=== PATIENT | male | born 1965 | race Caucasian/White ===

== ENCOUNTER 2022-12-30 00:13 | Inpatient (IN) | payer MEDICAID ==
[~2022-12-30] VITALS: Ht 188 cm; Wt 82.1 kg
[2022-12-30] VITALS (12 sets, daily range): BP systolic 98–123; BP diastolic 42–85
--- NOTE | 2022-12-30 00:18 | NUR ---
TO BED AMBULATORY
--- NOTE | 2022-12-30 00:30 | NUR ---
PATIENT WITH COMPLAINTS OF CHEST PAIN, 18G RIGHT AC AND 20G LEFT AC STARTED ON PATIENT. PLACED ON 2L VIA NC. AT BEDSIDE, CARDIAC ULTRASOUND PERFORMED STARTED LEVOPHED 4MG ON PATIENT @2MCG/MIN
[2022-12-30] MEDS ORDERED: NOREPINEPHRINE 4 MG/4 ML VIAL IV ONE ×2 (00:32→11:35)
[2022-12-30] MEDS ORDERED: NOREPINEPHRINE 4 MG in DEXTROSE 5% 250 ML IV ONE (00:50)
[2022-12-30 00:52] LABS: BASOPHILS % (AUTO) 0.4 % (0.0-2.0); EOSINOPHILS % (AUTO) 0.4 % (0.0-4.0); HEMATOCRIT 37.7 % (36-52); HEMOGLOBIN 12.8 g/dL (12.0-18.0); LYMPHOCYTES # (AUTO) 0.4 K/uL (2.0-11.5); LYMPHOCYTES % (AUTO) 19.5 % (20.5-51.1); MEAN CORPUSCULAR HEMOGLOBIN 31 pg (27-31); MEAN CORPUSCULAR HGB CONC 34 g/dL (33-37); MEAN CORPUSCULAR VOLUME 90.9 fL (80-94); MONOCYTES # (AUTO) 0.1 K/uL (0.8-1.0); MONOCYTES % (AUTO) 5.8 % (1.7-9.3); NEUTROPHILS # (AUTO) 1.7 K/uL (1.8-7.7); NEUTROPHILS % (AUTO) 73.9 % (42.2-75.2); PLATELET COUNT (AUTO) 171 K/uL (140-450); RED BLOOD CELL COUNT(AUTO) 4.15 MIL/uL (4.20-6.10); RED CELL DISTRIBUTION WIDTH 12.2 % (11.6-13.7); WHITE BLOOD COUNT (AUTO) 2.3 K/uL (4.8-10.8)
[2022-12-30 01:07] LABS: ALBUMIN 3.1 g/dL (3.4-5.0); ANION GAP 14.9 (8-16); CARBON DIOXIDE 24.9 mmol/L (21-32); CREATININE 1.8 mg/dL (0.6-1.3); POTASSIUM 4.8 mmol/L (3.5-5.1); TOTAL BILIRUBIN 0.4 mg/dL (0.0-1.0)
[2022-12-30] MEDS ORDERED: NACL 0.9% 2,000 ML IV ONE (01:40)
[2022-12-30] MEDS ORDERED: cefTRIAXone 2,000 MG in DEXTROSE 5% 100 ML IV ONE (01:40)
[2022-12-30] MEDS ORDERED: cefTRIAXone 2,000 MG VIAL ONE (01:43)
--- NOTE | 2022-12-30 01:50 | NUR ---
SPEECH THERAPIST AT BEDSIDE FOR BLOOD CULTURES
--- NOTE | 2022-12-30 03:05 | NUR ---
SWABBED PATIENT FOR RAPID COVID; PENDING ADMIT
[2022-12-30] MEDS ORDERED: NACL 0.9% 1,000 ML IV SCH (03:15)
--- NOTE | 2022-12-30 03:25 | NUR ---
"SPOKE WITH PATIENT'S FRIEND CATY OZUNA WHO DROVE PATIENT TO ER. PROVIDED THE FOLLOWING CONTACT INFORMATION FOR PATIENT'S CHILDREN GABRIELLE GRIFFIN (DTR), [id number] IJEOMA GRIFFIN (SON), [phone] CATY OZUNA (FRIEND), [phone] (CELL) | [phone] (WORK, [employer])"
--- NOTE | 2022-12-30 04:07 | NUR ---
Pt report given to ANALISA ARCE RN. Transfer of care at this time, TO ICU BED 2
--- NOTE | 2022-12-30 05:58 | NUR ---
PATIENT ADMITED TO ICU STABLE VITALS SIGNS IN NORMAL LIMITS COMPLAINING OF PAIN I CALL DOCTOR SHANON TO INFORME IT PATIENT HAVE CHEST PAIN IN THE LEFT INTERSCOTAL SR ON MONITOR
[2022-12-30] MEDS ORDERED: KETOROLAC 15 MG/ML VIAL ONE (06:09)
[2022-12-30] MEDS ORDERED: KETOROLAC 15 MG/ML VIAL IVP SCH (06:10)
--- NOTE | 2022-12-30 06:42 | NUR ---
PATIENT STABLE NOT COMPLAINING OF PAIN VITALS SIGNS IN NORMAL LIMITS SR 71 ON MONITOR
--- NOTE | 2022-12-30 07:15 | NUR ---
Received shift endorsement report from night stocker. Pt. is AAOx 4, verbalize understanding, B/L lung sound crackles upon auscultation. SR, Afebrile. Pt. is moaning and graoning in pain and coughing non-stop. Contacted Dr. Núñez and got orders for pain medication and cough medication. Administered Sidney and cough medication. Cont. on monitoring.
[2022-12-30 07:17] LABS: APPEARANCE,URINE CLEAR (CLEAR); BILIRUBIN,URINE NEGATIVE (NEGATIVE); BLOOD, URINE NEGATIVE (NEGATIVE); COLOR,URINE YELLOW (YELLOW); LEUKOCYTE ESTERASE ,URINE NEGATIVE (NEGATIVE); NITRITE, URINE NEGATIVE (NEGATIVE); UGLUCOSE NEGATIVE (NEGATIVE)
[2022-12-30] MEDS ORDERED: ACETAMINOPHEN 325 MG TAB PO PRN (07:45)
[2022-12-30] MEDS ORDERED: DOCUSATE SODIUM 100 MG GELCAP PO PRN (07:45)
[2022-12-30] MEDS ORDERED: guaiFENesin DM 200/20 MG-10 ML 10 ML UDC PO PRN (07:45)
[2022-12-30] MEDS ORDERED: POTASSIUM CHLORIDE 10 MEQ TABER PO PRN (07:45)
[2022-12-30] MEDS ORDERED: ZOLPIDEM 5 MG TAB PO PRN (07:45)
[2022-12-30] MEDS ORDERED: ONDANSETRON 4 MG/2 ML VIAL IM/IVP PRN (07:45)
--- NOTE | 2022-12-30 08:05 | NUR ---
RECEIVED ON SUPPLEMENTAL OXYGEN AT 3 LPM VIA NC SATURATION 99% TITRATED FIO2 TO 2LPM MIKAYLA/RN NOTIFIED
--- NOTE | 2022-12-30 08:10 | NUR ---
Pt. verbalized pain 2/10 and feeling better at this time.
[2022-12-30] MEDS: NACL 0.9% 1,000 ML IV SCH ×2 (08:11→16:33)
[2022-12-30] MEDS: PANTOPRAZOLE 40 MG TABEC PO SCH (08:15)
[2022-12-30 08:52] LABS: PROTHROMBIN TIME 10.4 secs (10.8-13.4)
[2022-12-30 09:08] LABS: CHOL/HDL RATIO 1.8 (1-4.5); FREE T4 (FREE THYROXINE) 0.92 ng/dL (0.76-1.46); MAGNESIUM 1.7 mg/dL (1.8-2.4); PHOSPHORUS 3.6 mg/dL (2.5-4.9); THYROID STIMULATING HORMONE 1.68 uIU/mL (0.34-3.74)
--- NOTE | 2022-12-30 09:11 | NUR ---
PATIENT HAS BEEN SCREENED AND CATEGORIZED HIGH NUTRITION RISK. PATIENT WILL BE SEEN WITHIN 1-2 DAYS OF ADMISSION. REVIEWED BY NAV WADDELL RD
[2022-12-30] MEDS ORDERED: MAG SULF 2000 MG/WATER PREMIX 50 ML IV SCH (09:23)
--- NOTE | 2022-12-30 10:01 | NUR ---
Contacted Dr. Núñez, made aware Mg 1.7. acknowledged and gave order to administer Mg 2 gm. Order noted and carried out.
--- NOTE | 2022-12-30 10:58 | NUR ---
CLINICAL RESEARCH NURSE CALLED TO BEDSIDE BY MIKAYLA/RN TO ASSESS SOB STATUS; PATIENT PRESENTING WITH INCREASED SOB AT 32 BPM BREATH SOUNDS WHEEZE AND RALES BILATERAL REVIEWED CXR DATED 12/30 AND PMHX REVIEWED FINDINGS WITH RN CLINICAL RESEARCH NURSE TO CONSULT PCP FOR HHN THERAPY ORDERS
[2022-12-30] MEDS ORDERED: ALBUTEROL SULFATE/IPRATROPIU 3 ML SOL IH ONE (10:59)
[2022-12-30] MEDS ORDERED: ALBUTEROL SULFATE/IPRATROPIU 3 ML SOL IH PRN (11:00)
[2022-12-30] MEDS: PROMETH/CODEINE 6.25-10MG/5ML 5 ML UDC PO PRN (11:21)
--- NOTE | 2022-12-30 11:35 | NUR ---
OVERRIDE LEVOPHED 4 MG TO MAKE LEVOPHED DRIP.
[2022-12-30] MEDS ORDERED: HYDROmorphone 1 MG/ML AMP IVP PRN (12:55)
[2022-12-30] MEDS: ALBUTEROL SULFATE/IPRATROPIU 3 ML SOL IH SCH ×2 (13:04→18:57)
[2022-12-30] MEDS: MORPHINE SULFATE 2 MG/ML SYR IVP PRN ×2 (15:00→18:29)
--- NOTE | 2022-12-30 19:30 | NUR ---
ASSUMED CARE OF THIS PATIENT AND ASSESSMENT DONE AND COMPLETED.AWAKE,ALERT AND ORIENTD.AFEBRILE.DENIES ANY PAIN AND DISCOMFORT.ON O2 2L VIA NC WITH O2 SAT AT 97% \.LUNG SOUNDS WITH CRACLES ON BILATERAL LUNG FIEDS.sr ON THE MONITOR.PATIENT IS VOIDING FREELY ON URINAL WITH ADEQUATE AMOUNT OF URINE OUTPUT.ALL PULSES PRENE AND PALPABLE.NO EDEMA NOTED ON ALL EXTREMITIES.ON LEVOPHED DRIP AT 8MCG. IV ON BOTH HANDS BENIGN.WILL CONTINUE TO PROCEED WITH CARE.
[2022-12-31] VITALS (12 sets, daily range): BP systolic 100–122; BP diastolic 61–77
[2022-12-31] MEDS: ALBUTEROL SULFATE/IPRATROPIU 3 ML SOL IH SCH ×4 (00:47→19:20)
[2022-12-31] MEDS: NACL 0.9% 1,000 ML IV SCH ×4 (01:00→16:16)
[2022-12-31] MEDS: NOREPINEPHRINE 4 MG/4 ML VIAL IV ONE ×2 (02:12→03:15)
[2022-12-31] MEDS: NOREPINEPHRINE 4 MG in DEXTROSE 5% 250 ML IV PRN ×3 (03:26→15:24)
[2022-12-31 05:23] LABS: BASOPHILS % (AUTO) 0.3 % (0.0-2.0); EOSINOPHILS # (AUTO) 0.1 K/uL (0-0.4); HEMATOCRIT 35.2 % (36-52); HEMOGLOBIN 11.9 g/dL (12.0-18.0); LYMPHOCYTES # (AUTO) 0.5 K/uL (2.0-11.5); LYMPHOCYTES % (AUTO) 7.6 % (20.5-51.1); MEAN CORPUSCULAR HEMOGLOBIN 31 pg (27-31); MEAN CORPUSCULAR HGB CONC 34 g/dL (33-37); MEAN CORPUSCULAR VOLUME 90.3 fL (80-94); MONOCYTES # (AUTO) 0.2 K/uL (0.8-1.0); MONOCYTES % (AUTO) 3.9 % (1.7-9.3); NEUTROPHILS # (AUTO) 5.2 K/uL (1.8-7.7); NEUTROPHILS % (AUTO) 87.2 % (42.2-75.2); PLATELET COUNT (AUTO) 178 K/uL (140-450); RED BLOOD CELL COUNT(AUTO) 3.89 MIL/uL (4.20-6.10); RED CELL DISTRIBUTION WIDTH 12.6 % (11.6-13.7); WHITE BLOOD COUNT (AUTO) 5.9 K/uL (4.8-10.8)
[2022-12-31 06:39] LABS: ANION GAP 13.2 (8-16); CARBON DIOXIDE 22.6 mmol/L (21-32); POTASSIUM 3.8 mmol/L (3.5-5.1)
--- NOTE | 2022-12-31 07:00 | NUR ---
REPORT GIVEN TO DAY SHIFT RN MIKAYLA FOR CONTINUITY OF CARE.
--- NOTE | 2022-12-31 07:15 | NUR ---
rECEIVED REPORT FROM PAPERHANGER APPRENTICE. PT. IS AA0X4, VERBALIZED UNDERSTANDING. NO C/O PAIN AND ACUTE DISTRESS NOTED AT TH8IS TIME. ON LEVOPHED 8 MCG AND NS AT 125CC/HR. CONTINENT TO B&B. AFEBRILE. VS WNL.
[2022-12-31] MEDS: HYDROcodone/APAP 7.5/325 MG 1 TAB PO PRN (08:00)
[2022-12-31] MEDS: PANTOPRAZOLE 40 MG TABEC PO SCH (08:00)
[2022-12-31] MEDS: PROMETH/CODEINE 6.25-10MG/5ML 5 ML UDC PO PRN (12:06)
--- NOTE | 2022-12-31 14:16 | NUR ---
DC PLANNING JOYCE ATTEMPTED TO MEET PT AT BEDSIDE TO COMPLETE ASSESSMENT HOWEVER, PT STRUGGLED TO ANSWER ASSESSMENT QUESTIONS HE CONTINUED TO EXPERIENCE SOB. JOYCE OUTREACHED TO PTS WON AVENDANO [phone] TO GATHER COLLATERAL INFORMATION HOWEVER, NO ANSWER. JOYCE TO FOLLOW Addendum: 01/01/23 at 1137 by Matilde FREITAS OUTREACHED TO PTS WON AVENDANO TO GATHER COLLAT INFO, HOWEVER, NO ANSWER. JOYCE WILL MAKE SECOND ATTEMPT TO MEET PT AT BEDSIDE. Addendum: 01/02/23 at 1607 by Matilde FREITAS SECOND ATTEMPT MADE TO COMPLETE ASSESSMENT WITH PT, HOWEVER, PT STRUGGLED TO STAY AWAKE LONG ENOUGH TO COMPLETE ASSESSMENT. ATTEMPTED TO OUTREACH TO PTS JUAN ALBERTO UPTON TO GATHER COLLAT INFO HOWEVER, NO ANSWER. JOYCE TO FOLLOW
[2022-12-31 16:28] LABS: BARBITURATE, URINE NEGATIVE ng/ml (NEG <=200); BENZODIAZEPINE, URINE NEGATIVE ng/mL (NEG <=200); CANNABINOID, URINE NEGATIVE ng/mL (NEG <=50); COCAINE, URINE NEGATIVE ng/mL (NEG <=300); OPIATE, URINE POSITIVE ng/mL (NEG <=2000); PHENCYCLIDINE SCREEN,URINE NEGATIVE ng/mL (NEG <=25)
--- NOTE | 2022-12-31 16:42 | NUR ---
12/31/22 RD INITIAL ASSESSMENT COMPLETED PLEASE REFER TO NUTRITION ASSESSMENT UNDER CARE ACTIVITY FOR ESTIMATED NUTRITIONAL NEEDS. 1. CONTINUE REGULAR DIET, TOLERATED. 2. MONITOR GI, PO INTAKE, AND LAB VALUES. 3. RD TO FOLLOW-UP 7 DAYS, LOW RISK REVIEWED BY NAV WADDELL RD
[2022-12-31 18:38] LABS: T4 (THYROXINE) 4.4 ug/dL (4.5 - 12.0)
--- NOTE | 2022-12-31 19:13 | NUR ---
ASSUMED CARE OF THIS PATIENT AND ASSESSMENT DONE AND COMPLETED.AWAKE ,ALERT AND ORIENTED.AFEBRILE.DENIES ANY PAIN NAD DISCOMFORT.CONTINENT OF BLADDER AND BOWEL.ON ROOM AIR WITH O2 SAT AT 100% ON ROOM AIT.NS STILL INFUSING AT 125ML/HOUT.WILL PROCEED WITH PRESENT PLAN OF CARE.
[2023-01-01] VITALS (9 sets, daily range): BP systolic 112–131; BP diastolic 64–89
[2023-01-01] MEDS: ALBUTEROL SULFATE/IPRATROPIU 3 ML SOL IH SCH ×4 (00:58→18:56)
[2023-01-01 05:26] LABS: BASOPHILS % (AUTO) 0.2 % (0.0-2.0); EOSINOPHILS # (AUTO) 0.1 K/uL (0-0.4); EOSINOPHILS % (AUTO) 1.6 % (0.0-4.0); HEMATOCRIT 31.9 % (36-52); HEMOGLOBIN 10.9 g/dL (12.0-18.0); LYMPHOCYTES % (AUTO) 13.8 % (20.5-51.1); MEAN CORPUSCULAR HEMOGLOBIN 31 pg (27-31); MEAN CORPUSCULAR HGB CONC 34 g/dL (33-37); MEAN CORPUSCULAR VOLUME 90.7 fL (80-94); MONOCYTES # (AUTO) 0.6 K/uL (0.8-1.0); NEUTROPHILS # (AUTO) 5.6 K/uL (1.8-7.7); NEUTROPHILS % (AUTO) 76.4 % (42.2-75.2); PLATELET COUNT (AUTO) 169 K/uL (140-450); RED BLOOD CELL COUNT(AUTO) 3.52 MIL/uL (4.20-6.10); RED CELL DISTRIBUTION WIDTH 12.4 % (11.6-13.7); WHITE BLOOD COUNT (AUTO) 7.3 K/uL (4.8-10.8)
[2023-01-01 05:53] LABS: ANION GAP 10.9 (8-16); CARBON DIOXIDE 24.9 mmol/L (21-32); CREATININE 0.9 mg/dL (0.6-1.3); POTASSIUM 3.8 mmol/L (3.5-5.1)
[2023-01-01] MEDS: MORPHINE SULFATE 2 MG/ML SYR IVP PRN ×3 (06:02→22:37)
--- NOTE | 2023-01-01 07:00 | NUR ---
ENDORSED TO DAY SHIFT SUMMER SERNA FOR CONTINUITY OF CARE.
--- NOTE | 2023-01-01 07:30 | NUR ---
Received pt awake, alert and oriented x4. Afebrile. On O2 via nasal cannula at 2L/min. Sinus rhythm on monitor. Abd soft and nondistended. Continent bowel and bladder. Peripheral IV 20 gauge intact and patent infusing NS@125ml/hr. Peripheral IV 20 gauge LAC saline locked. Safety precautions in place.
[2023-01-01] MEDS: HYDROcodone/APAP 7.5/325 MG 1 TAB PO PRN (07:50)
[2023-01-01] MEDS: PANTOPRAZOLE 40 MG TABEC PO SCH (08:10)
--- NOTE | 2023-01-01 09:18 | NUR ---
Seen and examined by Dr. Núñez.
[2023-01-01] MEDS: NACL 0.9% 1,000 ML IV SCH ×3 (10:54→23:45)
--- NOTE | 2023-01-01 11:00 | NUR ---
Seen and examined by Dr. Hobson. Pt to downgrade.
--- NOTE | 2023-01-01 13:34 | NUR ---
Sputum culture collected and walked to lab.
--- NOTE | 2023-01-01 14:46 | NUR ---
RECEIVED REPORT FROM KAREEM WHEELER FOR PT. ROOM READY AND SET
--- NOTE | 2023-01-01 15:06 | NUR ---
PT WAS BROUGHT FROM ICU, UPON ASSESSMENT PT IN DISTRESS, SOB, REPORTING SEVERE PAIN. CONNECTED TO VITAL SIGN MACHINE, O2 IN THE LOW 80S. RT WAS CALLED. ONCE BLOOD PRESSURE WAS OBTAINED, 171/98, HEART RATE 96, PRN MORPHINE ADMINISTERED PER MD ORDER. RT AT BEDSIDE, ON NC. AFTER MORPHINE WAS ADMINISTERED PT WAS ABLE TO CALM DOWN AND REST IN BED. ALL BELONGINGS AT BEDSIDE, WILL REASSESS VITALS
--- NOTE | 2023-01-01 15:15 | NUR ---
Transferred pt to room 111B. Pt c/o left abdomen pain during bed to bed transfer. Endorsement given to Ami.
--- NOTE | 2023-01-01 18:10 | NUR ---
PT VITALS SIGNS STABLE, RESTING ON 2L NC WITH NO S/S OF DISTRESS. SITTING UP IN BED EATING DINNER. ALL SAFETY MEASURES IN PLACE, CALL LIGHT WITHIN REACH. WILL CONTINUE TO MONITOR.
--- NOTE | 2023-01-01 19:20 | NUR ---
JUSTINA. REPORT FROM SUMMER JUSTIN. RECD PATIENT RESTING IN BED, A/OX4. WITH SLIGHT SOB. ON 02 AT 2 LITERS VIA N/C. IV OF NS INFUSING AT 100 ML/HR, RIGHT FOREARM G20. USES THE URINAL. ON IV ANTIBIOTIC AND BREATHING TREATMENTS. MEDICATIONS FOR THE NIGHT DISCUSSED WITH PATIENT. VERBALIZED UNDERSTANDING. DENIES PAIN 0/10.
--- NOTE | 2023-01-01 21:28 | NUR ---
SCHEDULED MEDICATION ADMINISTERED.
--- NOTE | 2023-01-02 | NUR ---
SLEEPING COMFORTABLY IN BED, RESPIRATION EVEN AND UNLABORED.
[2023-01-02] MEDS: ALBUTEROL SULFATE/IPRATROPIU 3 ML SOL IH SCH ×4 (01:41→20:01)
[2023-01-02 02:00] VITALS: BP 115/71
--- NOTE | 2023-01-02 02:00 | NUR ---
VOIDED 550 ML IN THE URINAL. SLEEPING IN BED, NO SOB NOTED.
--- NOTE | 2023-01-02 04:48 | NUR ---
VOIDING WELL IN THE URINAL, 600 ML OF CLEAR YELLOW URINE.
[2023-01-02] MEDS: NACL 0.9% 1,000 ML IV SCH ×2 (06:07→15:45)
[2023-01-02 06:46] LABS: BASOPHILS % (AUTO) 0.3 % (0.0-2.0); EOSINOPHILS # (AUTO) 0.1 K/uL (0-0.4); EOSINOPHILS % (AUTO) 1.6 % (0.0-4.0); HEMATOCRIT 33.4 % (36-52); HEMOGLOBIN 11.4 g/dL (12.0-18.0); LYMPHOCYTES # (AUTO) 0.8 K/uL (2.0-11.5); LYMPHOCYTES % (AUTO) 11.7 % (20.5-51.1); MEAN CORPUSCULAR HEMOGLOBIN 31 pg (27-31); MEAN CORPUSCULAR HGB CONC 34 g/dL (33-37); MEAN CORPUSCULAR VOLUME 90.4 fL (80-94); MONOCYTES % (AUTO) 15.9 % (1.7-9.3); NEUTROPHILS # (AUTO) 4.6 K/uL (1.8-7.7); NEUTROPHILS % (AUTO) 70.5 % (42.2-75.2); PLATELET COUNT (AUTO) 179 K/uL (140-450); RED BLOOD CELL COUNT(AUTO) 3.69 MIL/uL (4.20-6.10); RED CELL DISTRIBUTION WIDTH 12.3 % (11.6-13.7); WHITE BLOOD COUNT (AUTO) 6.5 K/uL (4.8-10.8)
[2023-01-02 06:52] LABS: ANION GAP 13.2 (8-16); CARBON DIOXIDE 25.7 mmol/L (21-32); CREATININE 0.8 mg/dL (0.6-1.3); POTASSIUM 3.9 mmol/L (3.5-5.1)
--- NOTE | 2023-01-02 06:55 | NUR ---
CONDITION REMAIN STABLE. WILL ENDORSED TO AM SHIFT NURSE FOR CONTINUITY OF CARE.
--- NOTE | 2023-01-02 07:00 | NUR ---
BREATHING TREATMENT STOPPED DUE LEFT SIDE PAIN. SUMMER OLIVER NOTIFIED.
--- NOTE | 2023-01-02 07:10 | NUR ---
RECEIVED BEDSIDE REPORT FROM NIGHT NURSE MARITZA FOR CONTINUITY OF CARE. INITIAL ASSESSMENT DONE. IVF INFUSING WELL. O2 THERAPY. CALL LIGHT KEPT WITHIN REACH. WILL CONTINUE TO MONITOR.
[2023-01-02 08:00] VITALS: BP 120/76
[2023-01-02] MEDS: HYDROcodone/APAP 7.5/325 MG 1 TAB PO PRN (08:55)
[2023-01-02] MEDS: PANTOPRAZOLE 40 MG TABEC PO SCH (08:56)
--- NOTE | 2023-01-02 08:56 | NUR ---
SCHEDULED MEDICATIONS GIVEN. TOLERATING WELL. PRN NORCO WAS GIVEN FOR PAIN MANAGEMENT.
[2023-01-02] MEDS: LEVOFLOXACIN 500 MG/D5W PREMIX 100 ML IV SCH (15:00)
[2023-01-02 16:00] VITALS: BP 121/78
[2023-01-02] MEDS: MORPHINE SULFATE 2 MG/ML SYR IVP PRN (17:11)
--- NOTE | 2023-01-02 19:05 | NUR ---
BEDSIDE REPORT GIVEN TO NIGHT NURSE JOSIE FOR CONTINUITY OF CARE. REMAINS STABLE.
--- NOTE | 2023-01-02 19:30 | NUR ---
RECEIVED PT FROM AM NURSE FOR CONTINUITY OF CARE.PT IS STABLE
--- NOTE | 2023-01-02 20:06 | NUR ---
PT REFUSED SCHEDULED BREATHING TX BECAUSE IT "HURTS MY EYES AND MAKES ME COUGH". PT WAS TACHYPNEIC AND COMPLAINING OF PAIN. PT SPO2 94% ON 2L, HR WAS 66. INFORMED PT OF BENEFITS AND CONS OF MED, PT STATED HE "MAY TAKE BREATHING TX AT THE NEXT SCHEDULED TIME BUT WOULD RATHER HAVE PAIN MEDS FIRST" Addendum: 01/02/23 at 2017 by EMMY OSBORN RT SUMMER GALINDO MADE AWARE
[2023-01-02] MEDS: CLINDAMYCIN 600MG/D5W PM 50 ML IV SCH (20:32)
[2023-01-02] MEDS ORDERED: CLINDAMYCIN 600MG/D5W PM 50 ML IV SCH (21:00)
[2023-01-03] MEDS: NACL 0.9% 1,000 ML IV SCH ×4 (00:42→23:44)
[2023-01-03] MEDS: ALBUTEROL SULFATE/IPRATROPIU 3 ML SOL IH SCH ×3 (01:00→14:02)
--- NOTE | 2023-01-03 01:00 | NUR ---
PATIENT ASLEEP, BREATHING EVEN AND UNLABORED,NO DISTRESS NOTED
[2023-01-03 02:00] VITALS: BP 124/79
[2023-01-03] MEDS: MORPHINE SULFATE 2 MG/ML SYR IVP PRN ×3 (03:08→18:15)
[2023-01-03] MEDS: CLINDAMYCIN 600MG/D5W PM 50 ML IV SCH ×3 (05:11→20:41)
[2023-01-03 06:48] LABS: BASOPHILS % (AUTO) 0.2 % (0.0-2.0); EOSINOPHILS # (AUTO) 0.1 K/uL (0-0.4); EOSINOPHILS % (AUTO) 0.8 % (0.0-4.0); HEMATOCRIT 35.1 % (36-52); LYMPHOCYTES % (AUTO) 15.2 % (20.5-51.1); MEAN CORPUSCULAR HEMOGLOBIN 31 pg (27-31); MEAN CORPUSCULAR HGB CONC 34 g/dL (33-37); MEAN CORPUSCULAR VOLUME 89.8 fL (80-94); MONOCYTES # (AUTO) 1.1 K/uL (0.8-1.0); MONOCYTES % (AUTO) 15.8 % (1.7-9.3); NEUTROPHILS # (AUTO) 4.6 K/uL (1.8-7.7); PLATELET COUNT (AUTO) 210 K/uL (140-450); RED BLOOD CELL COUNT(AUTO) 3.91 MIL/uL (4.20-6.10); RED CELL DISTRIBUTION WIDTH 12.4 % (11.6-13.7); WHITE BLOOD COUNT (AUTO) 6.8 K/uL (4.8-10.8)
--- NOTE | 2023-01-03 07:20 | NUR ---
RECEIVED REPORT FROM ALBA GALINDO FOR CONTINUITY OF CARE. REMAINS STABLE. Addendum: 01/03/23 at 2027 by BENITO GAYTAN LVN INCORRECT DOCUMENTATION.
--- NOTE | 2023-01-03 07:20 | NUR ---
RECEIVED BEDSIDE REPORT FROM NIGHT NURSE JOSIE FOR CONTINUITY OF CARE. INITIAL ASSESSMENT DONE. IVF INFUSING WELL. CALL LIGHT KEPT WITHIN REACH. WILL CONTINUE TO MONITOR.
[2023-01-03 07:27] LABS: ANION GAP 10.5 (8-16); CARBON DIOXIDE 27.8 mmol/L (21-32); CREATININE 0.8 mg/dL (0.6-1.3); POTASSIUM 4.3 mmol/L (3.5-5.1)
--- NOTE | 2023-01-03 07:30 | NUR ---
PT REFUSED BREATHING TX.
[2023-01-03 08:00] VITALS: BP 113/75
[2023-01-03] MEDS: PANTOPRAZOLE 40 MG TABEC PO SCH (10:11)
--- NOTE | 2023-01-03 10:14 | NUR ---
ADMINISTERED SCHEDULED MEDICATIONS. TOLERATING WELL.
--- NOTE | 2023-01-03 13:32 | NUR ---
PRN MORPHINE 2GM FOR PAIN MANAGEMENT WAS GIVEN TRACY ROSA RN.
--- NOTE | 2023-01-03 13:45 | NUR ---
PT AGREED TO TAKE BREATHING TX SOB NOTED DUE TO PT BEING UPSET HE IS IN A LOT OF PAIN HE STATED. PT TOLERATED TX WELL. WILL CONTINUE TO MONITOR. HR 80 SPO2 93% ON 2L NC.
[2023-01-03] MEDS: LEVOFLOXACIN 500 MG/D5W PREMIX 100 ML IV SCH (15:00)
--- NOTE | 2023-01-03 15:39 | NUR ---
DC PLANNING ASSESSMENT COMPLETE SEE ASSESSMENT FOR DETAILS PT REPORTS DC PLAN IS TO RETURN HOME WITH HIS DAUGHTER PROVIDING TRANSPORATION WHEN MEDICALLY STABLE. Addendum: 01/03/23 at 1540 by Matilde FREITAS Amended: Links added.
[2023-01-03 16:00] VITALS: BP 109/70
--- NOTE | 2023-01-03 18:15 | NUR ---
PRN MORPHINE 2GM FOR PAIN MANAGEMENT WAS GIVEN TRACY ROSA RN.
--- NOTE | 2023-01-03 19:20 | NUR ---
REPORT GIVEN TO JOSIE FOR CONTINUITY OF CARE. REMAINS STABLE.
--- NOTE | 2023-01-03 19:35 | NUR ---
RECEIVED PT FROM AM NURSE FOR CONTINUITY OF CARE. PT IS STABLE
[2023-01-03 20:00] VITALS: BP 116/94
--- NOTE | 2023-01-04 | NUR ---
PATIENT ASLEEP, NO DISTRESS NOTED
[2023-01-04] MEDS: MORPHINE SULFATE 2 MG/ML SYR IVP PRN (01:52)
[2023-01-04] MEDS: ALBUTEROL SULFATE/IPRATROPIU 3 ML SOL IH SCH ×4 (02:07→14:12)
[2023-01-04 04:00] VITALS: BP 114/81
[2023-01-04] MEDS: CLINDAMYCIN 600MG/D5W PM 50 ML IV SCH ×2 (04:44→13:28)
[2023-01-04 07:19] LABS: MAGNESIUM 1.9 mg/dL (1.8-2.4); PHOSPHORUS 4.3 mg/dL (2.5-4.9)
[2023-01-04 07:22] LABS: ANION GAP 12.6 (8-16); CARBON DIOXIDE 26.3 mmol/L (21-32); CREATININE 0.9 mg/dL (0.6-1.3); POTASSIUM 3.9 mmol/L (3.5-5.1)
[2023-01-04 08:13] LABS: BASOPHILS % (AUTO) 0.3 % (0.0-2.0); EOSINOPHILS # (AUTO) 0.1 K/uL (0-0.4); EOSINOPHILS % (AUTO) 0.7 % (0.0-4.0); HEMATOCRIT 33.9 % (36-52); HEMOGLOBIN 11.7 g/dL (12.0-18.0); LYMPHOCYTES # (AUTO) 1.4 K/uL (2.0-11.5); LYMPHOCYTES % (AUTO) 15.5 % (20.5-51.1); MEAN CORPUSCULAR HEMOGLOBIN 31 pg (27-31); MEAN CORPUSCULAR HGB CONC 35 g/dL (33-37); MEAN CORPUSCULAR VOLUME 90.3 fL (80-94); MONOCYTES # (AUTO) 0.8 K/uL (0.8-1.0); MONOCYTES % (AUTO) 8.3 % (1.7-9.3); NEUTROPHILS # (AUTO) 6.8 K/uL (1.8-7.7); NEUTROPHILS % (AUTO) 75.2 % (42.2-75.2); PLATELET COUNT (AUTO) 281 K/uL (140-450); RED BLOOD CELL COUNT(AUTO) 3.75 MIL/uL (4.20-6.10); RED CELL DISTRIBUTION WIDTH 12.6 % (11.6-13.7)
[2023-01-04] MEDS: NACL 0.9% 1,000 ML IV SCH (08:18)
[2023-01-04] MEDS: PANTOPRAZOLE 40 MG TABEC PO SCH (08:26)
[2023-01-04] MEDS: HYDROcodone/APAP 7.5/325 MG 1 TAB PO PRN (08:52)
[2023-01-04 12:00] VITALS: BP 106/75
[2023-01-04] MEDS ORDERED: ASPI-1822 PO (12:34)
[2023-01-04] MEDS ORDERED: CLIN300C2 PO (12:34)
[2023-01-04] MEDS ORDERED: LEVO750T75 PO (12:34)
[2023-01-04 14:31] VITALS: BP 109/76
--- NOTE | 2023-01-04 14:36 | NUR ---
RECEIVED DISCHARGE ORDERS, PRINTED DISCHARGE PACKET/DISCHARGE INSTRUCTIONS GIVEN AND EXPLAINED TO PATIENT AND DAUGHTER WON WHO IS AT BEDSIDE. PT AND DAUGHTER WON VERBALIZED UNDERSTANDING OF ALL DISCHARGE INSTRUCTIONS/PRESCRIPTIONS/FOLLOW UP APPT/EDUCATION MATERIALS. BOTH PT AND DAUGHTER AWARE TO CNA [facility] MEDICATIONS AT PREFERRED PHARMACY AFTER DISCHARGE AND SCHEDULE APPT WITH PCP IN 1-2 DAYS. IV SITES REMOVED, CATH INTACT, NO BLEEDING NOTED. DRESSED AND PREPARED FOR DISCHARGE. PT ACCOMPANIED TO FAMILY VEHICLE VIA WHEELCHAIR BY RN, PT LEFT WITH ALL BELONGINGS INCLUDING CELL PHONE, CLOTHING, WALLET AND DISCHARGE PACKET. PT VITALS STABLE THROUGHOUT SHIFT, VITALS UPON DISCHARGE: O2 95% ON RA, BP 109/76, HR 65, RR 20, T 97.6. Addendum: 01/04/23 at 1635 by Agency Nurse 15, RN RN ERROR- PATIENT DISCHARGED HOME WITH DAUGHTER AT 1525, NOT 1436.
== END 2023-01-04 18:30 | disposition home or self-care (01) | DRG 720 ==
LOC: MED 00:13 → MMU 03:15 → MIC 03:45 → MTU 01-01 15:10
PROVIDERS: ADMIT Family Medicine; ATTEND Family Medicine
DX: A41.9 Sepsis, unspecified organism (principal); N17.0 Acute kidney failure with tubular necrosis; R65.21 Severe sepsis with septic shock; E87.20 Acidosis, unspecified; E44.0 Moderate protein-calorie malnutrition; J18.9 Pneumonia, unspecified organism; E87.1 Hypo-osmolality and hyponatremia; E86.0 Dehydration; F15.10 Other stimulant abuse, uncomplicated; Z20.822 Contact with and (suspected) exposure to COVID-19; E83.42 Hypomagnesemia; E78.5 Hyperlipidemia, unspecified; Z87.891 Personal history of nicotine dependence; Z68.23 Body mass index [BMI] 23.0-23.9, adult
CPT/HCPCS: 36415; 71045; 71275; 80048; 80053; 80305; 81003; 82150; 82948; 83036; 83605; 83690; 83735; 83880; 84100; 84436; 84439; 84443; 84479; 84484; 85025; 85379; 85610; 85730; 87040; 87070; 87081; 87086; 87205; 93005; 94640; 96365; 96375; 99291; J0696; J1644; J1885; J1956; J2270; J3475; J3490; J7060; Q0092; Q9967